=== PATIENT | female | born 1960 ===

== ENCOUNTER 2019-04-05 08:52 | Outpatient (CLI) | payer OTHER ==
--- NOTE | 2019-04-05 10:14 | ULT ---
RENAL ULTRASOUND: HISTORY: Chronic kidney disease. FINDINGS: Limited evaluation of both kidneys due to shadowing. Kidneys are diminutive with an increased cortic al echotexture. Correlate for medical renal disease. There is renal cortical thinning. Bilaterally , no hydronephrosis. The right kidney measures 10.5 x 5.1 x 5.6 cm. The left kidney measures 9.6 x 4.4 x 5.1 cm. Urinary bladder has components of what appear to be lobulation. Bladder volume is 93 mL. IMPRESSION: 1. Possibly lobulated urinary bladder. 2. Possible medical renal disease with renal cortical thinning and diminutive kidneys. 3. No hydronephrosis. POS: C
== END 2019-04-05 08:53 | disposition home or self-care (01) ==
LOC: BICULT 08:52
PROVIDERS: ATTEND Family Medicine
DX: N18.9 Chronic kidney disease, unspecified (principal)
CPT/HCPCS: 76770